=== PATIENT | male | born 1980 ===

== ENCOUNTER 2022-08-29 00:23 | Emergency (ER) | payer SELFPAY ==
[2022-08-29] MEDS ORDERED: Nicotine 21 MG/24 Hr Patch ONE (02:01)
[2022-08-29] MEDS ORDERED: Nicotine 21 MG/24 Hr Patch TRDERM ONE (02:02)
== END 2022-08-29 02:08 ==
LOC: FB.ED 00:23
DX: S01.01XA Laceration without foreign body of scalp, initial encounter (principal); F10.120 Alcohol abuse with intoxication, uncomplicated; W17.89XA Other fall from one level to another, initial encounter
CPT/HCPCS: 12014; 99284; A9270

== ENCOUNTER 2022-11-20 10:15 | Emergency (ER) | payer MEDICAID ==
[2022-11-20 11:30] LABS: ESTIMATED GFR 87 mL/min (>60)
== END 2022-11-20 14:05 | disposition left against medical advice (07) ==
LOC: FB.ED 10:15
DX: F41.9 Anxiety disorder, unspecified (principal); F32.A Depression, unspecified; E66.9 Obesity, unspecified; Z68.30 Body mass index [BMI] 30.0-30.9, adult
CPT/HCPCS: 36415; 80053; 80307; 84439; 84443; 85025; 99283; 99284